=== PATIENT | male | born 1945 | race Caucasian/White ===

== ENCOUNTER 2018-01-17 14:30 | Outpatient (RCR) | payer MEDICARE, BC ==
[~2018-01-17 14:30] MED LIST: BYSTOLIC10 MG PO; COREG 3.123.125 MG/T; GENTAMICIN EYE D5 ML OD; NORVASC2.5 MG PO; testosterone IM
== END 2018-02-22 11:36 | disposition home or self-care (01) ==
LOC: MKS.ESL.PT 14:30
DX: M72.2 Plantar fascial fibromatosis (principal)
CPT/HCPCS: G8978-GP; G8979-GP

== ENCOUNTER 2018-06-28 15:46 | Inpatient (IN) | payer MEDICARE, BC ==
[~2018-06-28] VITALS: Ht 182.9 cm; Wt 93.2 kg
[2018-06-28 16:23] LABS: BASO # 0.1 (0.0-0.2); BASO % 0.7 % (0.0-2.0); EOS # 0.5 (0.0-0.7); EOS % 6.2 % (0-4.0); GRAN # 5.5 (1.4-6.5); GRAN % 64.2 % (42.2-75.2); HEMATOCRIT 46.6 % (42.0-52.0); LYMPH # 1.6 (1.2-3.4); LYMPH % 18.9 % (20.0-51.0); MEAN CELL VOLUME 96 fl (80.0-100.0); MEAN CORPUSCULAR HEMOGLOBIN 31 pg (27.0-31.0); MEAN CORPUSCULAR HGB CONC 32 g/dl (33.0-37.0); MEAN PLATELET VOLUME 9.8 fl (7.4-10.4); MONO # 0.8 (0.1-0.6); MONO % 9.6 % (1.7-9.3); PLATELET COUNT 254 K/mm3 (130-400); RED BLOOD COUNT 4.88 M/mm3 (4.20-5.60); REDCELL DISTRIBUTION WIDTH-CV 14.4 % (11.5-14.5)
[2018-06-28 16:30] LABS: INR 1.1 (0.8-3.0); PROTHROMBIN TIME 12.3 SECONDS (9.7-12.8)
[2018-06-28] MEDS ORDERED: PRILOSEC10 MG PO (16:34)
[2018-06-28 16:35] LABS: ALBUMIN 4.3 gm/dL (3.5-5.0); BILIRUBIN,TOTAL 2.1 mg/dL (0.0-1.0); CALCIUM 9.2 mg/dL (8.4-10.2); CREATININE, serum 1.82 mg/dL (0.66-1.25); POTASSIUM 4.4 mmol/L (3.4-5.0)
[2018-06-28] MEDS ORDERED: ZANTAC 7575 MG PO (16:35)
[2018-06-28 16:53] LABS: TROPONIN-I 0.096 ng/mL (0.000-0.034)
[2018-06-28] MEDS ORDERED: TENORMIN100 MG PO (17:28)
[2018-06-28 19:02] VITALS: BP 115/80; PULSE 80; TEMP 97.7
[2018-06-28 19:06] VITALS: BP 115/80; PULSE 80; TEMP 97.7
[2018-06-28 19:20] LABS: PARTIAL THROMBOPLASTIN TIME 33.7 SECONDS (26.0-37.0)
[2018-06-29] VITALS (336 sets, daily range): BP systolic 107–164; BP diastolic 62–110; PULSE 11–107; TEMP 97.2–97.8; O2SAT 75–100
[2018-06-29 08:45] LABS: HEMATOCRIT 45.2 % (42.0-52.0); HEMOGLOBIN 14.6 g/dl (13.5-18.0); MEAN CELL VOLUME 95 fl (80.0-100.0); MEAN CORPUSCULAR HEMOGLOBIN 31 pg (27.0-31.0); MEAN CORPUSCULAR HGB CONC 32 g/dl (33.0-37.0); MEAN PLATELET VOLUME 10.1 fl (7.4-10.4); PLATELET COUNT 247 K/mm3 (130-400); RED BLOOD COUNT 4.75 M/mm3 (4.20-5.60); REDCELL DISTRIBUTION WIDTH-CV 14.4 % (11.5-14.5)
[2018-06-29 08:55] LABS: CALCIUM 8.8 mg/dL (8.4-10.2); CHOLESTEROL RISK RATIO 5.5; CREATININE, serum 1.49 mg/dL (0.66-1.25); MAGNESIUM 2.2 mg/dL (1.6-2.3); POTASSIUM 4.6 mmol/L (3.4-5.0)
[2018-06-29 09:01] LABS: INR 1.1 (0.8-3.0); PROTHROMBIN TIME 12.3 SECONDS (9.7-12.8)
[2018-06-29 09:03] LABS: PARTIAL THROMBOPLASTIN TIME 64.6 SECONDS (26.0-37.0)
[2018-06-29 09:10] LABS: TROPONIN-I 0.098 ng/mL (0.000-0.034)
[2018-06-29 09:14] LABS: BASOPHIL 2 % (0-2); EOSINOPHIL 9 % (0-4); LYMPHOCYTE 21 % (20.0-51.0); NEUTROPHILS 51 % (42.0-75.2)
[2018-06-29 09:15] LABS: PLATELET ESTIMATE NORMAL (NORMAL)
[2018-06-29 09:18] LABS: HYPOCHROMIA 1+
[2018-06-30] VITALS (33 sets, daily range): BP systolic 110–149; BP diastolic 65–82; PULSE 56–78; TEMP 96.4–98.6; O2SAT 69–98
[2018-06-30 06:31] LABS: BASO % 0.3 % (0.0-2.0); EOS # 0.5 (0.0-0.7); EOS % 5.7 % (0-4.0); GRAN # 6.3 (1.4-6.5); GRAN % 69.2 % (42.2-75.2); HEMATOCRIT 43.2 % (42.0-52.0); LYMPH # 1.3 (1.2-3.4); LYMPH % 14.4 % (20.0-51.0); MEAN CELL VOLUME 95 fl (80.0-100.0); MEAN CORPUSCULAR HEMOGLOBIN 31 pg (27.0-31.0); MEAN CORPUSCULAR HGB CONC 32 g/dl (33.0-37.0); MEAN PLATELET VOLUME 10.3 fl (7.4-10.4); MONO # 0.9 (0.1-0.6); PLATELET COUNT 230 K/mm3 (130-400); RED BLOOD COUNT 4.55 M/mm3 (4.20-5.60); REDCELL DISTRIBUTION WIDTH-CV 14.4 % (11.5-14.5)
[2018-06-30 06:37] LABS: INR 1.1 (0.8-3.0); PROTHROMBIN TIME 12.6 SECONDS (9.7-12.8)
[2018-06-30 11:09] LABS: CALCIUM 8.8 mg/dL (8.4-10.2); CREATININE, serum 1.57 mg/dL (0.66-1.25); POTASSIUM 4.1 mmol/L (3.4-5.0)
[2018-06-30] MEDS ORDERED: LIPITOR 80MG80 MG PO (12:43)
[2018-06-30] MEDS ORDERED: BRILINTA90 MG PO (12:43)
[2018-06-30] MEDS ORDERED: MULTAQ400 MG PO (12:43)
[2018-06-30] MEDS ORDERED: COUMADIN 5MG5 MG/TAB PO (12:43)
[2018-06-30] MEDS ORDERED: NITROSTAT0.4 MG/TAB SL (12:47)
[2018-06-30] MEDS ORDERED: TOPROL XL 50MG50 MG PO (12:47)
[2018-06-30] MEDS ORDERED: COZAAR 25MG25 MG/TAB PO (12:47)
== END 2018-06-30 14:05 | disposition home or self-care (01) | DRG 247 ==
LOC: COL.ER 15:46 → MEDICAL 17:14 → ICU 06-29 11:00
PROVIDERS: Emergency Medicine; Internal Medicine; Nurse Practitioner
PROC: B2111ZZ Fluoroscopy of Multiple Coronary Arteries using Low Osmolar Contrast (ICD-10-PCS; principal; 2018-06-29)
PROC: 027034Z Dilation of Coronary Artery, One Artery with Drug-eluting Intraluminal Device, Percutaneous Approach (ICD-10-PCS; 2018-06-29)
DX: I21.4 Non-ST elevation (NSTEMI) myocardial infarction (principal); K21.9 Gastro-esophageal reflux disease without esophagitis; Z87.891 Personal history of nicotine dependence; I10 Essential (primary) hypertension; I48.91 Unspecified atrial fibrillation; I25.110 Atherosclerotic heart disease of native coronary artery with unstable angina pectoris
CPT/HCPCS: 99223-AI; 99232-AI; 99239; C1725; C1760; C1769; C1874; C1887; C1894; C9600; J1644; J2250; J3010; J7030; Q9967

== ENCOUNTER → 2018-09-06 | Outpatient (CLI) | payer MEDICARE, BC ==
[~2018-09-06] MED LIST changes: +BRILINTA90 MG PO; +COUMADIN 5MG5 MG/TAB PO; +COZAAR 25MG25 MG/TAB PO; +LIPITOR 80MG80 MG PO; +MULTAQ400 MG PO; +NITROSTAT0.4 MG/TAB SL; +PRILOSEC10 MG PO; +TENORMIN100 MG PO; +TOPROL XL 50MG50 MG PO; +ZANTAC 7575 MG PO
[2018-09-07 02:52] LABS: RHEUMATOID FACTOR-SCREEN <15 IU/mL (0-29)
[2018-09-07 03:17] LABS: PROCALCITONIN 0.05 ng/mL (0.00-0.09)
[2018-09-08 12:43] LABS: ANGIOTENSIN CONVERTING ENZYME 34 U/L (8 - 53)
== END ==
LOC: COL.LAB 08:55
PROVIDERS: Internal Medicine Pulmonary Disease
DX: R91.1 Solitary pulmonary nodule (principal)

== ENCOUNTER → 2018-09-10 | Outpatient (CLI) | payer MEDICARE, BC | LOC: COL.LAB 12:08 | DX: R91.1 Solitary pulmonary nodule (principal) ==

== ENCOUNTER 2018-10-10 11:05 | Outpatient (RCR) | payer MEDICARE, BC | END 2018-10-11 | disposition still patient (30) | LOC: COL.CR | DX: Z48.812 Encounter for surgical aftercare following surgery on the circulatory system (principal); I21.4 Non-ST elevation (NSTEMI) myocardial infarction; Z95.5 Presence of coronary angioplasty implant and graft ==

== ENCOUNTER 2018-10-17 14:11 | Outpatient (RCR) | payer MEDICARE, BC | END 2019-01-10 | disposition home or self-care (01) | LOC: COL.CR | DX: Z48.812 Encounter for surgical aftercare following surgery on the circulatory system (principal); I25.2 Old myocardial infarction; Z95.5 Presence of coronary angioplasty implant and graft ==

== ENCOUNTER 2019-11-13 10:00 | Outpatient (RCR) | payer MEDICARE, BC | END 2020-01-14 | disposition home or self-care (01) | LOC: MKS.ESL.PT | DX: M25.512 Pain in left shoulder (principal) ==

== ENCOUNTER → 2019-12-13 | Outpatient (CLI) | payer MEDICARE, BC | LOC: COL.RAD 10:53 | DX: R59.9 Enlarged lymph nodes, unspecified (principal); R91.1 Solitary pulmonary nodule ==

== ENCOUNTER 2020-03-19 17:05 | Emergency (ER) | payer MEDICARE, BC ==
[~2020-03-19] VITALS: Ht 182.9 cm; Wt 95.5 kg
[2020-03-19 17:14] VITALS: TEMP 98.2
[2020-03-19 17:36] LABS: INR 2.3 (0.8-3.0); PROTHROMBIN TIME 26.4 SECONDS (9.7-12.8)
[2020-03-19 17:44] LABS: ALANINE AMINOTRANSFERASE 19 U/L (4-49); ALKALINE PHOSPHATASE 70 U/L (50-136); ANION GAP 7 mmol/L (7-16); AST,SGOT 38 U/L (15-37); BILIRUBIN,TOTAL 1.3 mg/dL (0.0-1.0); BLOOD UREA NITROGEN 28 mg/dL (9-20); CALCIUM 9.2 mg/dL (8.4-10.2); CARBON DIOXIDE 23 mmol/L (22-30); CHLORIDE 106 mmol/L (98-107); CREATININE, serum 1.93 (0.66-1.25); GLUCOSE 108 mg/dL (74-106); LIPASE 246 U/L (23-300); POTASSIUM 4.7 mmol/L (3.4-5.0); SODIUM 135 mmol/L (137-145); TOTAL PROTEIN 7.6 gm/dL (6.4-8.2)
[2020-03-19 17:57] LABS: TROPONIN-I < 0.012 ng/mL (0.000-0.035)
[2020-03-19 18:07] LABS: BASO % 0.5 % (0.0-2.0); EOS # 0.3 (0.0-0.7); EOS % 4.3 % (0-4.0); GRAN # 4.8 (1.4-6.5); GRAN % 63.4 % (42.2-75.2); HEMOGLOBIN 10.4 g/dl (13.5-18.0); LYMPH # 1.5 (1.2-3.4); LYMPH % 19.9 % (20.0-51.0); MEAN CELL VOLUME 96 fl (80.0-100.0); MEAN CORPUSCULAR HEMOGLOBIN 30 pg (27.0-31.0); MEAN CORPUSCULAR HGB CONC 31 g/dl (33.0-37.0); MEAN PLATELET VOLUME 10.5 fl (7.4-10.4); MONO # 0.9 (0.1-0.6); MONO % 11.6 % (1.7-9.3); PLATELET COUNT 222 K/mm3 (130-400); RED BLOOD COUNT 3.44 M/mm3 (4.20-5.60); REDCELL DISTRIBUTION WIDTH-CV 14.6 % (11.5-14.5)
[2020-03-19 18:08] LABS: HEMATOCRIT 33.1 % (42.0-52.0)
[2020-03-19 21:29] VITALS: BP 1118/76; PULSE 89
== END 2020-03-19 21:29 | disposition home or self-care (01) ==
LOC: COL.ER 17:05
PROVIDERS: Emergency Medicine
DX: R07.89 Other chest pain (principal); R10.13 Epigastric pain; I25.10 Atherosclerotic heart disease of native coronary artery without angina pectoris; I10 Essential (primary) hypertension; Z95.9 Presence of cardiac and vascular implant and graft, unspecified; Z90.49 Acquired absence of other specified parts of digestive tract; Z90.89 Acquired absence of other organs; Z79.01 Long term (current) use of anticoagulants
CPT/HCPCS: C9113; J2270; J2405; J7030